=== PATIENT | male | born 1985 | race Caucasian/White ===

== ENCOUNTER 2022-07-30 17:54 | Emergency (ER) | payer BC, OTHER ==
[~2022-07-30] VITALS: Ht 182.8 cm; Wt 124.7 kg
[2022-07-30] MEDS ORDERED: AUGMENTIN 875 MG TAB (AMOXICILLIN/CLAVULANATE) PO STA (18:04)
[2022-07-30] MEDS ORDERED: AMOX1TAB12 PO (18:08)
[2022-07-30] MEDS ORDERED: ACHD5005 PO (18:08)
[2022-07-30] MEDS ORDERED: IBUP-1780 PO (18:08)
--- NOTE | 2022-07-30 18:10 | ED EENT ---
History of Present Illness General Chief Complaint: Dental Problems/Pain Stated Complaint: DENTAL PAIN Source: patient History of Present Illness Date Seen by Provider: Jul 30, 2022 Time Seen by Provider: 17:56 Initial Comments 37-year-old male presenting with complaints of diffuse dental pain. He stated that the pain has gotten worse over the last week. He does have history of multiple broken and decayed teeth. He felt that he had some pus coming from around a tooth earlier today which prompted him to come to the emergency department. He denies having any fever or chills. He plans to follow-up with a dentist and get referred to oral surgeon again for his teeth. He was concerned for getting on antibiotics tonight so that was why he presented to the emergency department. He previously had an appointment with oral surgery but was unable to get off work to attend the appointment. Timing/Duration: gradual, last week Severity: moderate Location: facial, dental Prearrival Treatment: over the counter meds Modifying Factors: Worse With Other (Eating and drinking makes it worse) Associated Symptoms: No change in hearing, No cough, No drooling, No ear drainage; facial pain/swelling; No fever, No malaise, No nasal congesti on/drainage, No poor fluid intake, No poor solids intake, No sinus infection, No sore throat; tooth pain; No voice change Allergies and Home Medications Allergies Coded Allergies: No Known Drug Allergies (Unverified , 07/30/22) Patient Home Medication List Home Medication List Reviewed: Yes Amoxicillin/Potassium Clav (Amox Tr-K Clv 875-125 mg Tab) 875 Mg-125 Mg Tablet, 1 EACH PO BID Prescribed by: JOSSELINE VASQUEZ on 07/30/221807 Hydrocodone/Acetaminophen (Hydrocodone-Acetamin 5-325 mg) 5 Mg-325 Mg Tablet, 1 TAB PO Q4H PRN for PAIN SEVERE Prescribed by: JOSSELINE VASQUEZ on 07/30/221808 Ibuprofen (Ibuprofen) 800 Mg Tablet, 800 MG PO Q8H PRN for PAIN Prescribed by: JOSSELINE VASQUEZ on 07/30/221807 Review of Systems Review of Systems Constitutional: No chills, No fever Eyes: No Symptoms Reported Ears: No Symptoms Reported Nose: no symptoms reported Mouth: see HPI Throat: no symptoms reported Respiratory: no symptoms reported Cardiovascular: no symptoms reported Gastrointestinal: no symptoms reported Musculoskeletal: no symptoms reported Skin: no symptoms reported Neurological: No Symptoms Reported Hematologic/Lymphatic: No Symptoms Reported Past Yemlmth-Pzfpcu-Gajfhy Hx Patient Social History Tobacco Use?: Yes Tobacco type used: Cigarettes Smoking Status: Current Everyday Smoker Physical Exam Vital Signs Vital Signs - First Documented 07/30/22 17:54 Temp 36.0 Pulse 88 Resp 16 B/P (MAP) 167/97 (120) Pulse Ox 99 O2 Delivery Room Air Height, Weight, BMI Height: '" Weight: lbs. oz. kg; BMI Method: General Appearance: WD/WN, no apparent distress Eyes: bilateral eye PERRL, bilateral eye EOMI Mouth/Throat: pharynx normal, dental tenderness, other (Mild erythema and swelling to the gums especially on the mandible and multiple widespread dental caries and widespread dental decay.) Neck: non-tender, full range of motion, supple, normal inspection Cardiovascular: normal peripheral pulses, regular rate, rhythm Respiratory: chest non-tender, lungs clear, normal breath sounds Neurologic/Psychiatric: alert, oriented x 3 Skin: normal color, warm/dry Progress/Results/Core Measures Results/Orders My Orders Orders - JOSSELINE VASQUEZ MD Rx-Hydrocodone/Apap 5-325 Mg (Rx-Vicodin (07/30/22 18:15) Amoxicillin/Clavulanate Tablet (Augmenti (07/30/22 18:04) Medications Given in ED Current Medications Medications Dose Ordered Sig/[place] Route Start Time Stop Time Status Last Admin Dose Admin Acetaminophen/ Hydrocodone Bitart 1 ea Q4H PRN PO 07/30/22 18:15 07/30/22 18:14 DC 07/30/22 18:13 1 EA Vital Signs/I&O 07/30/22 07/30/22 17:54 18:14 Temp 36.0 36.0 Pulse 88 88 Resp 16 16 B/P (MAP) 167/97 (120) 167/97 Pulse Ox 99 99 O2 Delivery Room Air Room Air Progress Progress Note : Progress Note Potential diagnosis of dental caries, pain due to dental caries, widespread dental decay, dental abscess, gingivitis. With patient having some swelling to the gums and having widespread dental decay with increased pain we will start him on Augmentin 875 to help cover for potential infection. Also prescribed ibuprofen 800 mg every 8 hours as needed for pain and inflammation. For severe pain hydrocodone/acetaminophen 5/325 1 pill every 4 hours as needed severe pain. Stressed importance of follow-up with the clinic to get in with a dentist and/or oral surgeon as well as follow-up with his primary care provider in the clinic to continue to help manage antibiotics and pain control. Departure Impression Primary Impression: Pain due to dental caries Additional Impression: Dental abscess Disposition: HOME, SELF-CARE Condition: Stable Departure-Patient Inst. Decision time for Depature: 18:07 Referrals: MARISELA VÁZQUEZ APRN (PCP) Primary Care Physician [facility] (Family) Primary Care Physician Patient Instructions: Tooth Abscess ED, Tooth Decay ED, Dental Pain ED Add. Discharge Instructions: Take full course of antibiotics to help treat for dental infection and abscess. For severe pain you could take the narcotic pain medicine hydrocodone/acetaminophen 5/325 mg 1 by mouth every 4 hours as needed for severe pain. This can cause constipation and impair your driving. You should not drive while taking the narcotic pain medicine. If you are having constipation with taking the medicine then consider taking a laxative such as MiraLAX to help stimulate your bowels and help them move. Follow-up with dentist and oral surgeon for definitive care. Follow-up with your primary care provider for continued pain and antibiotic ma nagement. All discharge instructions reviewed with patient and/or family. Voiced understanding. Scripts Hydrocodone/Acetaminophen (Hydrocodone-Acetamin 5-325 mg) 5 Mg-325 Mg Tablet 1 TAB PO Q4H PRN for PAIN SEVERE for 3 Days, #18 TAB 0 Refills Prov: JOSSELINE VASQUEZ MD 07/30/22 Ibuprofen (Ibuprofen) 800 Mg Tablet 800 MG PO Q8H PRN for PAIN for 10 Days, #30 TAB 0 Refills Prov: JOSSELINE VASQUEZ MD 07/30/22 Amoxicillin/Potassium Clav (Amox Tr-K Clv 875-125 mg Tab) 875 Mg-125 Mg Tablet 1 EACH PO BID for Dental Infection for 10 Days, #20 TAB 0 Refills Prov: JOSSELINE VASQUEZ MD 07/30/22 JOSSELINE VASQUEZ MD Jul 30, 2022 18:10
[2022-07-30 18:14] VITALS: BP 167/97
== END 2022-07-30 18:13 | disposition home or self-care (01) ==
LOC: ER FS 17:56
DX: K02.9 Dental caries, unspecified (principal); K04.7 Periapical abscess without sinus; F17.210 Nicotine dependence, cigarettes, uncomplicated; Z28.310 Unvaccinated for COVID-19
CPT/HCPCS: 99283